=== PATIENT | male | born 1975 | race Two or more races ===

== ENCOUNTER 2023-06-22 05:12 | Emergency (ER) | payer OTHER ==
[~2023-06-22] VITALS: Ht 188 cm; Wt 91.0 kg
[2023-06-22 05:18] VITALS: BP 136/78; PULSE 115; RESP 16; TEMP 98.7
[2023-06-22] MEDS ORDERED: KETOROLAC TROMETH 60MG/2ML VIAL IM ONE (06:30)
[2023-06-22] MEDS ORDERED: HYDROcodone-ACET 5/325MG TAB PO ONE (06:30)
[2023-06-22 06:45] VITALS: O2SAT 99
[2023-06-22] MEDS ORDERED: ACET300T58 PO (08:17)
[2023-06-22] MEDS ORDERED: IBUP-1455 PO (08:17)
== END 2023-06-22 08:25 | disposition home or self-care (01) ==
LOC: ER 05:12
DX: S86.911A Strain of unspecified muscle(s) and tendon(s) at lower leg level, right leg, initial encounter (principal); X58.XXXA Exposure to other specified factors, initial encounter; Y93.01 Activity, walking, marching and hiking; Y92.89 Other specified places as the place of occurrence of the external cause; Y99.8 Other external cause status
CPT/HCPCS: 73562; 96372; 99283; J1885

== ENCOUNTER 2024-07-07 05:35 | Emergency (ER) | payer MEDICAID, OTHER ==
[~2024-07-07] VITALS: Ht 190.5 cm; Wt 89.0 kg
[~2024-07-07 05:35] MED LIST: ACET300T58 PO; IBUP-1455 PO
[2024-07-07 06:30] LABS: Eosinophils # (auto) 0 10 ^3/uL (0-0.8); Eosinophils % (auto) 0.2 % (0.0-7.0); Lymphocytes # (auto) 1.4 10 ^3/uL (0.4-5.4); Monocytes # (auto) 0.4 10 ^3/uL (0-1.3); Nucleated Red Blood Cells % 0.2 %; Red Blood Cells 5.71 10^6/uL (4.5-5.90); Red Cell Distribution Width 13.3 % (11.8-14.3)
[2024-07-07 06:38] LABS: Alanine Aminotransferase 13 U/L (7-40); Albumin 5.1 g/dL (3.2-4.8); Alkaline Phosphatase 75 U/L (46-116); Anion Gap 9 (5-15); Aspartate Aminotransferase < 8 U/L (13-40); Basophils # (auto) 0 10 ^3/uL (0-0.2); Basophils % (auto) 1.1 % (0.0-2.0); Calcium 10.2 mg/dL (8.7-10.4); Carbon Dioxide 23 mmol/L (20-31); Chloride 106 mmol/L (98-107); Glucose 156 mg/dL (74-106); Hematocrit 50.9 % (41.0-53.0); Hemoglobin 17.7 g/dL (13.5-17.5); Lymphocytes % (auto) 32.8 % (10.0-50.0); Mean Corpuscular Hemoglobin 30.9 pg (28.0-32.0); Mean Corpuscular Hgb Conc. 34.7 g/dL (32.0-36.0); Mean Corpuscular Volume 89.2 fL (80.0-100.0); Monocytes % (auto) 9.6 % (0.0-12.0); Neutrophils # (auto) 2.4 10 ^3/uL (1.6-8.6); Neutrophils % (auto) 56.3 % (37.0-80.0); Platelet Count (auto) 217 10^3/uL (140-450); Potassium 3.1 mmol/L (3.5-5.1); Sodium 138 mmol/L (136-145); White Blood Cell 4.2 10^3/uL (4.4-10.8)
[2024-07-07 06:39] LABS: BUN/Creatinine Ratio 5.5 (10.0-20.0); Bilirubin, Total 0.6 mg/dL (0.2-1.0); Blood Urea Nitrogen < 5 mg/dL (9-23); Total Protein 7.6 g/dL (5.7-8.2)
[2024-07-07 06:51] LABS: INR 1.04 (0.9-1.15); Partial Thromboplastin Time 27.7 SEC (24.5-34.5)
[2024-07-07 08:00] VITALS: BP 122/73; PULSE 81; RESP 21; TEMP 98.4; O2SAT 98
[2024-07-07] MEDS ORDERED: AMOX500C2 PO (08:36)
[2024-07-07] MEDS: POTASSIUM EFFERVESENT TAB 25 MEQ PO ONE ×2 (08:46)
== END 2024-07-07 08:55 | disposition home or self-care (01) ==
LOC: ER 05:35
DX: J40 Bronchitis, not specified as acute or chronic (principal); Z79.899 Other long term (current) drug therapy
CPT/HCPCS: 36415; 71045; 80053; 83880; 84484; 85025; 85610; 85730; 93005

== ENCOUNTER 2025-01-26 08:47 | Day surgery (SDC) | payer OTHER ==
[~2025-01-26] VITALS: Ht 188 cm; Wt 96.2 kg
[~2025-01-26 08:47] MED LIST changes: -ACET300T58 PO; -IBUP-1455 PO; +NAP500T GT; +OMEP20TA PO
--- NOTE | 2025-01-26 11:10 | DVHHP2 ---
GI H&P Pre-Op Assessment Date: 01/26/25 Chief complaint: colon cancer screening HPI: per clinic note Past medical history: per clinic note Past surgical history: per clinic note Family history: per clinic note Physical exam: General: NAD, AAOX3 HEENT: PERRL, no scleral icterus, normal hearing, gums without lesions or bleeding, oropharynx clear without erythema or exudate. Neck: Supple without enlargement of the thyroid, or lymphadenopathy. Chest: Normal size and shape, no tenderness, lung viramontes clear to auscultation and percussion, nonlabored breathing. Heart: RRR, no murmur Abdomen: non-distended, no tenderness to palpation, +BS, no hepatosplenomegaly Extremities: no edema Neurological: CN II-XII intact, sensation intact in all extremities, 5+ strength in all extremities Skin: No rashes, No jaundice Assessment: - colon cancer screening Plan: - Colonoscopy - Risks (bleeding, infection, perforation, reaction to sedation medications and cardiopulmonary arrest) and benefit of the procedure were explained to patient. Patient agrees to undergo the procedure. SHANE QUINN MD January 26, 2025 11:10
[2025-01-26] MEDS ORDERED: MIDAZOLAM HCL 2MG/2ML 2ml VIAL (1mg/ml) ONE (11:30)
[2025-01-26] MEDS ORDERED: PROPOFOL 10 MG/ML 20 ML IV ONE (11:30)
[2025-01-26] MEDS ORDERED: KETAMINE 50mg/ML 1ml syringe ONE (11:50)
[2025-01-26] MEDS ORDERED: DexAMETHasone SOD PHOS 10MG/1ML VIAL INJ ONE (11:51)
[2025-01-26] MEDS ORDERED: GLYCOPYRROLATE 0.2 MG/ML 1ML VIAL ONE (11:51)
[2025-01-26] MEDS ORDERED: ONDANSETRON HCL 4 MG/2 ML VIAL ONE (11:51)
[2025-01-26 12:11] VITALS: PULSE 121; RESP 84; TEMP 97.2; O2SAT 98
--- NOTE | 2025-01-26 12:13 | DVHOP2 ---
Operative Report DATE OF OPERATION: 01/26/25 PROCEDURE: Colonoscopy. PREOPERATIVE INDICATION: The patient is a 49 -year-old male undergoing colonoscopy for cancer screening. POSTOPERATIVE DIAGNOSES: 1. Two (3 mm, 4 mm) polyps in the descending colon were removed with cold biopsy forceps. 2. Internal hemorrhoids PROCEDURE PERFORMED BY: Jose Gardiner M.D. SCOPE: Olympus videocolonoscope. ASA CLASS: 3 PREOPERATIVE MEDICATIONS: MAC with Dr Hogan PROCEDURE IN DETAIL: After obtaining an informed consent, the patient was placed on left lateral decubitus position. He was then sedated with the above medications. A rectal examination was performed that was normal. The colonoscope was then passed through the anus into the rectosigmoid and through the descending, transverse, and ascending colon up to the cecum with visualization of the appendiceal orifice, base of the cecum and the ileocecal valve. Two (3 mm, 4 mm) polyps in the descending colon were removed with cold biopsy forceps. There were internal hemorrhoids. The colonoscope was then withdrawn. The patient tolerated the procedure well without difficulty. WITHDRAWAL TIME: 9 minutes QUALITY OF THE PREP: Derry Bowel Prep score: 6 COMPLICATIONS : None SPECIMENS: Colon polyps DISPOSITION: D/C to home PLAN: 1. Repeat colonoscopy base on biopsy result JOSE GARDINER MD January 26, 2025 12:13
--- NOTE | 2025-01-26 12:13 | DVHDS2 ---
Physician Discharge Progress N Final Diagnosis: Colon polyps, internal hemorrhoids Operations or Procedures: Operations or Procedures Colonoscopy with cold biopsy polypectomy Condition on Discharge: Good Disposition: Home Discharge Instructions: Diet: Regular Activity: No Restrictions, As Tolerated Medications: Resume with previous home medications Follow Up Care: Discharge Statement: "Patient was advised to return to the ER or call 911 if any headaches, dizziness, shortness of breath, chest pain, abdominal pain, bleeding, fevers, or worsening of medical condition. Patient was counseled about treatment plan, medications, possible side effects, patientverbalized understanding. All questions were answered to the best of my ability. This discharge took greater then 30 minutes in planning, reviewing documentation, counseling the patient, and discussing with other team members." SHANE QUINN MD January 26, 2025 12:13
[2025-01-26 12:41] VITALS: BP 120/86; PULSE 79; RESP 19; O2SAT 99
== END 2025-01-26 12:56 | disposition home or self-care (01) ==
LOC: GI 08:47
PROVIDERS: ATTEND Internal Medicine Gastroenterology
DX: K59.00 Constipation, unspecified (principal); D12.4 Benign neoplasm of descending colon; K63.5 Polyp of colon; K64.8 Other hemorrhoids; R12 Heartburn; R10.10 Upper abdominal pain, unspecified; I10 Essential (primary) hypertension; J43.9 Emphysema, unspecified; K21.9 Gastro-esophageal reflux disease without esophagitis; Z79.899 Other long term (current) drug therapy; Z80.0 Family history of malignant neoplasm of digestive organs
CPT/HCPCS: 45380; 88305; J1100; J2250; J2405; J2704; J7030

== ENCOUNTER → 2025-04-13 | Day surgery (SDC) | payer MEDICAID ==
[~2025-04-13] VITALS: Ht 190.5 cm; Wt 98.4 kg
[~2025-04-13] MED LIST changes: +ATOR20TA PO; +PROPOFOL 10 MG/ML 20 ML IV ONE; +TIOT1AER2 IN; +fentaNYL CITRATE 100 MCG/2 ML VL ONE
--- NOTE | 2025-04-13 10:58 | DVHHP2 ---
GI H&P Pre-Op Assessment Date: 04/13/25 Chief complaint: Dysphagia HPI: per clinic note Past medical history: per clinic note Past surgical history: per clinic note Family history: per clinic note Physical exam: General: NAD, AAOX3 HEENT: PERRL, no scleral icterus, normal hearing, gums without lesions or bleeding, oropharynx clear without erythema or exudate. Neck: Supple without enlargement of the thyroid, or lymphadenopathy. Chest: Normal size and shape, no tenderness, lung viramontes clear to auscultation and percussion, nonlabored breathing. Heart: RRR, no murmur Abdomen: non-distended, no tenderness to palpation, +BS, no hepatosplenomegaly Extremities: no edema Neurological: CN II-XII intact, sensation intact in all extremities, 5+ strength in all extremities Skin: No rashes, No jaundice Assessment: - Dysphagia Plan: - EGD - Risks (bleeding, infection, perforation, reaction to sedation medications and cardiopulmonary arrest) and benefit of the procedure were explained to patient. Patient agrees to undergo the procedure. SHANE QUINN MD Apr 13, 2025 10:58
[2025-04-13 11:12] VITALS: PULSE 84; RESP 18; TEMP 98.8; O2SAT 96
--- NOTE | 2025-04-13 11:13 | DVHOP2 ---
Operative Report DATE OF OPERATION: 04/13/25 PROCEDURE: Upper Endoscopy. PREOPERATIVE INDICATION: The patient is a 49 -year-old male undergoing endoscopy for dysphagia. POSTOPERATIVE DIAGNOSES: 1. The esophagus was normal in appearance. The esophagus was dilated with 52 [place] bougie. PROCEDURE PERFORMED BY: Jose Gardiner SCOPE: Olympus videoendoscope. ASA CLASS: 3 PREOPERATIVE MEDICATIONS: MAC with Dr Lawrence PROCEDURE IN DETAIL: After obtaining an informed consent, the patient was placed on left lateral decubitus position. The patient was then sedated with the above medications. A bite block was placed between his teeth. The endoscope was then passed through the oropharynx, into the esophagus, and throu gh the stomach and pylorus up to the second and third part of the duodenum. The duodenum was normal in appearance. The stomach was normal in appearance. The GE junction was normal in appearance at 40 cm. The esophagus was normal in appearance. The esophagus was dilated with 52 [place] bougie. The endoscope was then withdrawn. The patient tolerated the procedure well without difficulty. COMPLICATIONS : None SPECIMENS: None DISPOSITION: D/C to home PLAN: 1. Will see if the dilation improve his dysphagia. JOSE GARDINER MD Apr 13, 2025 11:13
--- NOTE | 2025-04-13 11:13 | DVHDS2 ---
Physician Discharge Progress N Final Diagnosis: Normal EGD, dysphagia Operations or Procedures: Operations or Procedures EGD with dilation with bougie Condition on Discharge: Good Disposition: Home Discharge Instructions: Diet: Regular Activity: No Restrictions, As Tolerated Medications: Resume previous home medications Follow Up Care: Discharge Statement: "Patient was advised to return to the ER or call 911 if any headaches, dizziness, shortness of breath, chest pain, abdominal pain, bleeding, fevers, or worsening of medical condition. Patient was counseled about treatment plan, medications, possible side effects, patientverbalized understanding. All questions were answered to the best of my ability. This discharge took greater then 30 minutes in planning, reviewing documentation, counseling the patient, and discussing with other team members." SHANE QUINN MD Apr 13, 2025 11:13
[2025-04-13 11:35] VITALS: BP 131/82; PULSE 68; RESP 14; O2SAT 97
== END | disposition home or self-care (01) ==
LOC: GI 09:25
PROVIDERS: ATTEND Internal Medicine Gastroenterology
DX: R13.10 Dysphagia, unspecified (principal); K21.9 Gastro-esophageal reflux disease without esophagitis; J43.9 Emphysema, unspecified; E78.5 Hyperlipidemia, unspecified; Z79.899 Other long term (current) drug therapy; Z87.01 Personal history of pneumonia (recurrent)
CPT/HCPCS: 43235; 43450; J2704; J3010; J7030